=== PATIENT | male | born 1965 | race Caucasian/White ===

== ENCOUNTER 2020-12-20 22:11 | Emergency (ER) | payer BC ==
[~2020-12-20] VITALS: Ht 193 cm; Wt 92.1 kg
[2020-12-20 22:30] VITALS: BP_SYST 127
[2020-12-20] MEDS ORDERED: BACITRACIN 1 GM OINT TP ONE (23:25)
[2020-12-20] MEDS ORDERED: DIPH-TET-PERTUS Vaccine 0.5 ML VIAL (ADACEL) I.M. ONE (23:45)
[2020-12-21] MEDS ORDERED: CLIN300C12 PO (00:23)
[2020-12-21] MEDS ORDERED: DOXY100C PO (00:23)
[2020-12-21 00:35] VITALS: BP_SYST 125
== END 2020-12-21 00:35 | disposition home or self-care (01) ==
LOC: SED 22:11
DX: S61.452A Open bite of left hand, initial encounter (principal); S01.05XA Open bite of scalp, initial encounter; S40.212A Abrasion of left shoulder, initial encounter; Z88.0 Allergy status to penicillin; Z79.899 Other long term (current) drug therapy; W54.0XXA Bitten by dog, initial encounter; Y93.89 Activity, other specified; Y92.89 Other specified places as the place of occurrence of the external cause; Y99.8 Other external cause status
CPT/HCPCS: 90715; 99283